=== PATIENT | female | born 1965 | race Caucasian/White ===

== ENCOUNTER 2020-10-11 14:17 | Emergency (ER) | payer OTHER, SELFPAY ==
--- NOTE | ~2020-10-11 | CT_ITS ---
EXAMINATION: CT ABDOMEN AND PELVIS WITH CONTRAST CLINICAL INFORMATION: Left lower quadrant pain for 3 days. COMPARISON: CT abdomen and pelvis with contrast 09/06/2012. TECHNIQUE: Multidetector volumetric images were obtained from the superior aspect of the liver through the pubic symphysis following administration 85 mL of Omnipaque 350 intravenous contrast. Sagittal and coronal reformatted images were obtained on the technologist's workstation. Oral contrast: No This CT examination was performed using dose optimization techniques as appropriate, variously including the following: *Automated exposure control *Adjustment of mA and/or kV according to patient size (this includes techniques or standardized protocols for targeted exams where dose is matched to indication/reason for exam; i.e. extremities or head) *Use of iterative reconstruction technique DLP: 565 mGy-cm FINDINGS: LUNG BASES: The visualized lung bases are unremarkable. LIVER, GALLBLADDER, AND BILIARY TREE: The liver is borderline enlarged measuring 19 cm in length similar to prior exam. There is mild diffuse hepatic steatosis. There is some accentuated steatosis adjacent to the gallbladder fossa. No focal hepatic parenchymal lesion or intrahepatic ductal dilatation. There has been prior cholecystectomy. The common duct is unremarkable. PANCREAS: Unremarkable. SPLEEN: Unremarkable. ADRENAL GLANDS: Unremarkable. KIDNEYS AND URETERS: The kidneys are normal in size, shape, and attenuation. No hydronephrosis, hydroureter, or calculi seen. No perinephric stranding. BLADDER: Unremarkable. GASTROINTESTINAL TRACT: There are focal inflammatory changes in region of distal descending and proximal sigmoid colon in an area of diverticula. There is subtle induration in the mesentery adjacent to the diverticulum consistent with diverticulitis. This is in similar area to prior diverticulitis in 2013. There is no proximal obstruction, pneumatosis, or free air, or fluid collection. No ascites. The appendix is normal. There are lipomatous changes in region of ileocecal valve as incidental finding. There is a small sliding hiatal hernia approximately 3 cm. ABDOMINAL WALL: Small fat-containing umbilical hernia approximately 2 cm. LYMPH NODES: No lymphadenopathy. VASCULAR: Unremarkable. PELVIC VISCERA: Unremarkable. OSSEOUS STRUCTURES: Unremarkable. CT/CT abdomen pelvis w con IMPRESSION: Diverticulitis left lower quadrant at junction distal descending and proximal sigmoid colon. No proximal obstruction, ascites, or fluid collection.
[2020-10-11 14:36] VITALS: BP 134/76; PULSE 88; RESP 16; O2SAT 94; BMI 29.4
[2020-10-11 15:41] LABS: Glucose Urine UA NEG (NEG); Leukocyte Esterase Urine 1+ (NEG); Nitrite Urine NEG (NEG); Specific Gravity - Urine 1.015 (1.005-1.025); Urine Blood NEG (NEG); Urine Ketones NEG (NEG); Urine Protein NEG (NEG-TRACE)
[2020-10-11 15:44] LABS: Appearance Urine HAZY; Color Urine YELLOW
--- NOTE | 2020-10-11 15:44 | ED.ABDPAIN ---
HPI - Abdominal Pain General Chief Complaint: Abdominal Pain Stated Complaint: abd pain Time Seen by Provider: 10/11/20 15:16 Source: patient and family Mode of arrival: ambulatory Limitations: language barrier ( Estonian-speaking) History of Present Illness HPI narrative: 54-year-old female with a past medical history of GERD, pancreatitis, diabetes, hypertension, asthma, anxiety and depression who has had a cholecystectomy and a tubal ligation presenting to the ED with her daughter at bedside with complaints of left lower quadrant abdominal pain with associated dysuria, increased urinary urgency /frequency for the past 3 days worse today. Reports that she was treated for UTI in August. She reports associated chills. Denies any fevers, nausea /vomiting, chest pain, shortness of breath, back pain, abnormal vaginal discharge, diarrhea or constipation, black or bloody stools, recent travel or sick contacts or any other symptoms complaints or concerns at this time. MD elicited complaint: abdominal pain Pertinent past history: past UTI Onset (ago): day(s) ( Three days) Pain Consistency: constant Location: LLQ Severity: moderate Quality: aching Radiation: none Migration to: no migration Exacerbating factors: other ( urination) Relieving factors: nothing Associated symptoms: other ( dysuria/ increased urinary urgency/frequent and chills) Related Data Previous Rx's Medication Instructions Recorded acetaminophen [Tylenol Extra 1,000 mg PO QID PRN #14 tab 10/11/20 Strength] amoxicillin-pot clavulanate 1 tab PO BID 10 Days #20 tab 10/11/20 [Augmentin] ibuprofen 800 mg PO Q8H PRN #14 tab 10/11/20 ondansetron HCl [Zofran] 4 mg PO Q8H PRN #14 tab 10/11/20 oxycodone 5 mg PO BID PRN #10 tab 10/11/20 Allergies Allergy/AdvReac Type Severity Reaction Status Date / Time No Known Allergies Allergy Verified 10/11/20 14:40 Review of Systems Review of Systems Constitutional : No Weight loss, No Fever, No Chills, No Night Sweats, No Fatigue, NoMalaise ENT/Mouth: No ear pain, No sore throat, No Difficulty swallowing Cardiovascular : No Chest Pain, No SOB, No Dyspnea on Exertion, No Orthopnea, NoEdema, No Palpitations Respiratory : No Cough, No Sputum, No Wheezing, No Dyspnea Gastrointestinal : positive left lower quadrant abdominal pain, No Nausea, No Vomiting, No Diarrhea, No blood streaked emesis, No coffee-ground emesis, No gross hematemesis, No blood streak stool, No gross hematochezia, No Melena Genitourinary : positive dysuria / increased urinary urgency /frequency, No irregular bleeding, No Hematuria,No Urinary Incontinence, No Flank Pain Musculoskeletal : No joint pain, No Myalgias, No Joint Swelling Skin : No Skin Lesions, No rash Neuro : No Weakness, No Numbness, No Paresthesias, No Loss of Consciousness, NoDizziness, No Headache Psych : No Social Issues, Heme/Lymph: No Bruising, No Bleeding,No Lymphadenopathy Endocrine : No Polyuria, No Polydipsia, No Temperature Intolerance Yes all other systems are reviewed and are negative Physical Exam Vital Signs: Vital Signs: Last Vital Signs Pulse 82 10/11/20 16:28 Resp 16 10/11/20 14:36 BP 130/71 10/11/20 16:28 Pulse Ox 96 10/11/20 16:28 Body Mass Index 29.4 vital signs have been reviewed as normal and appeared to be correct. Blood pressure normal. Heart rate normal. Respiration rate normal. Temperature normal. Oxygen saturation normal. Appearance: Alert. Oriented X3. No acute distress. Head: Normal external exam. Normocephalic. Eyes: PERRLA. EOMI. Conjunctiva and sclera normal. Eyelids normal. ENT: Pharynx normal. Uvula midline. Moist mucous membranes. Neck: Normal inspection. Neck supple. FROM. No adenopathy. No meningeal signs. CVS: Normal heart rate and rhythm. Heart sound normal. No murmurs noted. Pulses normal throughout. Respiratory: No respiratory distress. Painless inspiration. Breath sounds normal. No wheezes/rales/rhonchi noted. Chest nontender. No accessory muscle usage noted or decreased air movement noted. Abdomen: Soft and tenderness to palpation to left lower quadrant with guarding. Nondistended. No rigidity. Bowel sounds normal in all 4 quadrants. No distention noted. No organomegaly noted. No visible injury noted. No rebound tenderness. Negative Rovsing sign. Negative obturator's sign. Negative psoas sign. Negative Rodriguez sign. Back: No CVA tenderness. Full range of motion noted. Skin: Skin warm and dry. Normal skin color. Normal skin turgor. No rashes/lesions/lacerations noted. Extremities: Extremities exhibit normal range of motion. Extremities nontender. Neuro: Oriented X 3. No motor deficit. No sensory deficit. Reflexes normal. Normal steady gait. Course Course Course Narrative: 15:40pm - 54-year-old female with a past medical history of GERD, pancreatitis, diabetes, hypertension, asthma, anxiety and depression who has had a cholecystectomy and a tubal ligation presenting to the ED with her daughter at bedside with complaints of left lower quadrant abdominal pain with associated dysuria, increased urinary urgency /frequency for the past 3 days worse today. Reports that she was treated for UTI in August. She reports associated chills. Plan: Labs, UA, UHCG, CT scan abdomen pelvis with IV contrast. Provide a L of IV fluids, 4 mg of Zofran and 15 mg of Toradol then re-evaluate. Reevaluation(s) Reevaluation #1: - labs returned all within normal limits. UA within normal limits no evidence of UTI. CT scan abdomen pelvis revealed diverticulitis left lower quadrant as junctional distal descending and proximal sigmoid colon. No proximal obstruction ascites or fluid collection. Patient is tolerating p.o. fluids / solids. I offered admission although patient reports she would rather go home. Therefore will DC home with antibiotics and symptomatic treatment along with instructions follow-up with primary care provider in GI and to return if any new or worsening symptoms. Patient and daughter at bedside understand agree this plan. Time: 18:00 MDM - Abdominal Pain Medical Records Attestation: I reviewed the patient's medical records. Lab Data Attestation: I reviewed the patient's lab results. Result diagrams: 10/11/20 16:10 10/11/20 15:33 Labs: Lab Results 10/11/20 10/11/20 10/11/20 Range/Units 15:33 15:33 16:10 WBC 11.8 H (4.8-10.8) X10*3/uL RBC 4.51 (4.20-5.50) X10*6/uL Hgb 14.0 (12.0-16.0) g/dl Hct 41.2 (37-47) % MCV 91.4 (80-98) fL MCH 31.0 (27.0-33.0) pg MCHC 34.0 (31.0-35.0) g/dl RDW 12.5 (11.0-16.0) % Plt Count 227 (160-400) X10*3/uL MPV 11.5 (9.4-12.3) fL Immature Gran % (Auto) 0.6 H (0.0-0.4) % Neut % (Auto) 68.1 (45-73) % Lymph % (Auto) 24.2 (20-40) % [place] % (Auto) 4.8 (2-11) % Eos % (Auto) 2.0 (0-4) % Baso % (Auto) 0.3 (0-2) % Lymph # (Auto) 2.9 (1.2-4.9) X10*3/uL [place] # (Auto) 0.6 (0.1-1.2) X10*3/uL Eos # (Auto) 0.2 (0.0-0.4) X10*3/uL Baso # (Auto) 0.0 (0.0-0.2) X10*3/uL Abs Immat Gran (auto) 0.07 H (0.00-0.03) X10*3/uL Absolute Neuts (auto) 8.0 (2.0-8.3) X10*3/uL Absolute Nucleated RBC 0.000 (0.0-0.012) X10*3/uL Nucleated RBC % (auto) 0.0 (0.0-0.2) /100WBC Sodium 139 (135-145) mmol/L Potassium 3.6 (3.3-5.1) mmol/L Chloride 101 (96-108) mmol/L Carbon Dioxide 25 (22-29) mmol/L Anion Gap 17 (12-20) BUN 9 (9-16) mg/dL Creatinine 0.69 (0.5-1.4) mg/dL Estim Creat Clear Calc 88.1 Estimated GFR > 60 Random Glucose 144 H (60-115) mg/dL Calcium 9.7 (8.4-10.2) mg/dL Magnesium 1.8 (1.6-2.6) mg/dL Total Bilirubin 0.8 (0.0-1.0) mg/dL AST 25 (5-31) U/L ALT 24 (0-31) U/L Alkaline Phosphatase 88 (39-117) U/L Total Protein 8.2 H (6.5-8.0) g/dL Albumin 4.4 (3.5-5.0) g/dL Lipase 16 (8-78) U/L Urine Color YELLOW Urine Appearance HAZY Urine pH 6.0 (5.0-8.0) Ur Specific [place] 1.015 (1.005-1.025) Urine Protein NEG (NEG-TRACE) MG/DL Urine Glucose (UA) NEG (NEG) MG/DL Urine Ketones NEG (NEG) MG/DL Urine Blood NEG (NEG) Urine Nitrite NEG (NEG) Ur Leukocyte Esterase 1+ H (NEG) Urine RBC 0 (0) /HPF Urine WBC 5-9 H (0-4) /HPF Ur Squamous Epith Cells 4+ /LPF Urine Bacteria 1+ /LPF Imaging Data CT scan abdomen pelvis IV contrast: Attestation: I personally reviewed and interpreted this imaging study as follows: Radiologist's impression: FINDINGS: LUNG BASES: The visualized lung bases are unremarkable. LIVER, GALLBLADDER, AND BILIARY TREE: The liver is borderline enlarged measuring 19 cm in length similar to prior exam. There is mild diffuse hepatic steatosis. There is some accentuated steatosis adjacent to the gallbladder fossa. No focal hepatic parenchymal lesion or intrahepatic ductal dilatation. There has been prior cholecystectomy. The common duct is unremarkable. PANCREAS: Unremarkable. SPLEEN: Unremarkable. ADRENAL GLANDS: Unremarkable. KIDNEYS AND URETERS: The kidneys are normal in size, shape, and attenuation. No hydronephrosis, hydroureter, or calculi seen. No perinephric stranding. BLADDER: Unremarkable. GASTROINTESTINAL TRACT: There are focal inflammatory changes in region of distal descending and proximal sigmoid colon in an area of diverticula. There is subtle induration in the mesentery adjacent to the diverticulum consistent with diverticulitis. This is in similar area to prior diverticulitis in 2013. There is no proximal obstruction, pneumatosis, or free air, or fluid collection. No ascites. The appendix is normal. There are lipomatous changes in region of ileocecal valve as incidental finding. There is a small sliding hiatal hernia approximately 3 cm. ABDOMINAL WALL: Small fat-containing umbilical hernia approximately 2 cm. LYMPH NODES: No lymphadenopathy. VASCULAR: Unremarkable. PELVIC VISCERA: Unremarkable. OSSEOUS STRUCTURES: Unremarkable. CT/CT abdomen pelvis w con IMPRESSION: Diverticulitis left lower quadrant at junction distal descending and proximal sigmoid colon. No proximal obstruction, ascites, or fluid collection. Discharge Plan Discharge Clinical Impression: Diverticulitis Patient Disposition: Home, Self-Care Instructions: Diverticulitis (ED), Diverticulitis Diet (ED) Prescriptions: New ibuprofen 800 mg tablet 800 mg PO Q8H PRN (Reason: pain) Qty: 14 RF: 0 ondansetron HCl [Zofran] 4 mg tablet 4 mg PO Q8H PRN (Reason: nausea and vomiting) Qty: 14 RF: 0 acetaminophen [Tylenol Extra Strength] 500 mg tablet 1,000 mg PO QID PRN (Reason: fever or pain) Qty: 14 RF: 0 amoxicillin-pot clavulanate [Augmentin] 875-125 mg tablet 1 tab PO BID 10 Days Qty: 20 RF: 0 oxycodone 5 mg tablet 5 mg PO BID PRN (Reason: pain) Qty: 10 RF: 0 Referrals: Cheryl Murry NP [Primary Care Provider] - 2 days Hugo Florentino MD [Physician] - 2 days Print Language: [employer] Past Medical History Attestation statement: The following information was validated with the patient. Medical History Anxiety Asthma Diabetes Hypertension Surgical History H/O tubal ligation History of cholecystectomy Social History Social History Advance Directives: Yes Advance Directives Information Provided: Yes Advance Directives on File: No Patient : No
[2020-10-11 15:50] LABS: Bacteria Urine 1+ /LPF; RBC Urine 0 /HPF (0); Squamous Epithelial Cell Urine 4+ /LPF
[2020-10-11 16:11] LABS: Alanine Aminotransferase 24 U/L (0-31); Albumin Level 4.4 g/dL (3.5-5.0); Alkaline Phosphatase 88 U/L (39-117); Anion Gap 17 (12-20); Aspartate Amino Transferase 25 U/L (5-31); Bilirubin Total 0.8 mg/dL (0.0-1.0); Blood Urea Nitrogen 9 mg/dL (9-16); Calcium 9.7 mg/dL (8.4-10.2); Carbon Dioxide 25 mmol/L (22-29); Chloride 101 mmol/L (96-108); Creatinine Clr Calc Pharmacy 88.1; Estimated Glomerular Filt Rate > 60; Glucose Random 144 mg/dL (60-115); Lipase 16 U/L (8-78); Magnesium 1.8 mg/dL (1.6-2.6); Potassium 3.6 mmol/L (3.3-5.1); Sodium 139 mmol/L (135-145); Total Protein 8.2 g/dL (6.5-8.0)
[2020-10-11] MEDS: Ketorolac Tromethamine 15 MG/ML VIAL IVPUSH (16:18)
[2020-10-11] MEDS: ondansetron HCL 4 MG/2 ML VIAL IVPUSH (16:18)
[2020-10-11] MEDS: 0.9 % Sodium Chloride 1,000 ML 999 ML IVCONT (16:18)
[2020-10-11 16:28] VITALS: BP 130/71; PULSE 82; O2SAT 96
[2020-10-11 16:31] LABS: Basophils Percent Auto 0.3 % (0-2); Eosinophils Absolute Auto 0.2 X10*3/uL (0.0-0.4); Hematocrit 41.2 % (37-47); Imm Gran Abs Auto 0.07 X10*3/uL (0.00-0.03); Imm Gran Pct Auto 0.6 % (0.0-0.4); Lymphocytes Absolute Auto 2.9 X10*3/uL (1.2-4.9); Lymphocytes Percent Auto 24.2 % (20-40); Mean Corpuscular Volume 91.4 fL (80-98); Mean Platelet Volume 11.5 fL (9.4-12.3); Monocytes Absolute Auto 0.6 X10*3/uL (0.1-1.2); Monocytes Percent Auto 4.8 % (2-11); Neutrophils Percent Auto 68.1 % (45-73); Platelet Count 227 X10*3/uL (160-400); Red Blood Count 4.51 X10*6/uL (4.20-5.50); Red Cell Distribution Width 12.5 % (11.0-16.0); White Blood Count 11.8 X10*3/uL (4.8-10.8)
[2020-10-11] MEDS: iohexoL 350 MG/ML 100 ML INFUS..BTL IV (16:45)
== END 2020-10-11 18:38 | disposition home or self-care (01) ==
PROVIDERS: Physician Assistant Medical; Emergency Provider Emergency Medicine; PCP Nurse Practitioner Family
DX: K57.92 Diverticulitis of intestine, part unspecified, without perforation or abscess without bleeding (principal); E11.9 Type 2 diabetes mellitus without complications; I10 Essential (primary) hypertension; J45.909 Unspecified asthma, uncomplicated; Z90.49 Acquired absence of other specified parts of digestive tract; Z98.51 Tubal ligation status
CPT/HCPCS: 36415; 74177; 80053; 81001; 81025; 83690; 83735; 85025; 96361; 96374; 96375; 99284; J1885; J2405; Q9967

== ENCOUNTER 2020-11-25 09:10 | Emergency (ER) | payer OTHER, SELFPAY ==
--- NOTE | ~2020-11-25 | XR_ITS ---
EXAMINATION: XR THORACIC SPINE CLINICAL INFORMATION: Upper back pain COMPARISON: None TECHNIQUE: 3 views of the thoracic spine were obtained. FINDINGS: There is normal thoracic kyphosis. The vertebral heights, alignment and disc heights are normal. No visible acute fracture, dislocation or subluxation seen. XR/XR thoracic spine 3V IMPRESSION: Unremarkable thoracic spine exam.
--- NOTE | ~2020-11-25 | XR_ITS ---
EXAMINATION: XR SHOULDER, LEFT CLINICAL INFORMATION: Left shoulder pain COMPARISON: None TECHNIQUE: The left shoulder is imaged in 3 views. FINDINGS: There is no fracture or dislocation or destructive process. The glenohumeral joint appears normal. There are no rotator cuff calcifications. The acromioclavicular alignment is normal. There is small inferior spurring from the distal acromium. The left lung apex is well expanded and shows no pneumothorax or pleural reaction. XR/XR shoulder LT min 2V IMPRESSION: 1. No fracture, dislocation, destructive process. 2. Small inferior spur at distal acromium. 3. No visible rotator cuff calcifications.
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
[2020-11-25 11:01] VITALS: BP 135/88; PULSE 81; RESP 18; TEMP 37.1; O2SAT 97; BMI 25.7
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
[2020-11-25 13:34] VITALS: BP 135/82; PULSE 68; RESP 16; TEMP 36.6; O2SAT 99
== END 2020-11-25 16:09 | disposition home or self-care (01) ==
PROVIDERS: Emergency Provider Emergency Medicine; PCP Nurse Practitioner Family
DX: S39.012A Strain of muscle, fascia and tendon of lower back, initial encounter (principal); R07.89 Other chest pain; M54.2 Cervicalgia; M54.6 Pain in thoracic spine; V43.52XA Car driver injured in collision with other type car in traffic accident, initial encounter; Y93.9 Activity, unspecified; Y92.410 Unspecified street and highway as the place of occurrence of the external cause; Y99.9 Unspecified external cause status; Z79.899 Other long term (current) drug therapy
CPT/HCPCS: 71046; 72072; 72100; 72125; 73030; 99284

== ENCOUNTER → 2021-01-21 11:31 | Outpatient (BNVA) | payer OTHER, SELFPAY | PROVIDERS: PCP Nurse Practitioner Family; Visit Provider Nurse Practitioner | DX: Z12.11 Encounter for screening for malignant neoplasm of colon (principal); K57.92 Diverticulitis of intestine, part unspecified, without perforation or abscess without bleeding; K90.89 Other intestinal malabsorption; K21.9 Gastro-esophageal reflux disease without esophagitis | CPT/HCPCS: Q3014 ==

== ENCOUNTER 2021-05-01 22:00 | Emergency (ER) | payer OTHER, SELFPAY ==
--- NOTE | ~2021-05-01 | XR_ITS ---
EXAMINATION: XR CHEST CLINICAL INFORMATION: Dyspnea. COMPARISON: Chest x-ray 11/25/2020 TECHNIQUE: 2 views of the chest were obtained. FINDINGS: No significant abnormality is noted involving the heart, lungs, mediastinum, bony thorax or soft tissues. XR/XR chest 2V IMPRESSION: Unremarkable examination.
[2021-05-01 22:05] VITALS: BP 171/95; PULSE 83; RESP 24; TEMP 36.6; O2SAT 97; BMI 29.2
[2021-05-01 23:15] VITALS: BP 155/83; PULSE 84; RESP 18; TEMP 36.7; O2SAT 96
--- NOTE | 2021-05-01 23:15 | ED_ITS ---
HPI - SOB/Dyspnea General Chief Complaint: Dyspnea Stated Complaint: Difficulty breathing Time Seen by Provider: 05/01/21 23:09 Source: patient Mode of arrival: ambulatory Limitations: no limitations History of Present Illness HPI Narrative: patient's history of asthma no history of smoking being wheezing for last few days getting worse using inhaler at home also nebulizing treatment as needed without much relief has dry cough mostly no fever no chills already been vaccinated against COVID Related Data Previous Rx's Medication Instructions Recorded acetaminophen 500 mg tablet 1,000 mg PO QID PRN #14 tab 10/11/20 (Tylenol Extra Strength) amoxicillin 875 mg-potassium 1 tab PO BID 10 Days #20 tab 10/11/20 clavulanate 125 mg tablet (Augmentin) ibuprofen 800 mg tablet 800 mg PO Q8H PRN #14 tab 10/11/20 ondansetron HCl 4 mg tablet 4 mg PO Q8H PRN #14 tab 10/11/20 (Zofran) oxycodone 5 mg tablet 5 mg PO BID PRN #10 tab 10/11/20 cyclobenzaprine 10 mg tablet 10 mg PO Q8H #10 tab 11/25/20 ibuprofen 800 mg tablet 800 mg PO Q8H PRN #14 tab 11/25/20 bisacodyl 5 mg tablet,delayed 10 mg PO BEDTIME 2 Days #4 tab 01/21/21 release (Dulcolax (bisacodyl)) famotidine 40 mg tablet (Pepcid) 40 mg PO BEDTIME 30 Days #30 tab 01/21/21 peg 3350-electrolytes 236 240 ml PO Q10M 1 Days #4000 ml 01/21/21 gram-22.74 gram-6.74 gram-5.86 gram solution (Golytely) cholestyramine-aspartame 4 gram 4 g PO DAILY #210 g 04/30/21 oral powder (Cholestyramine Light) prednisone 20 mg tablet 40 mg PO DAILY #10 tab 05/02/21 Allergies Allergy/AdvReac Type Severity Reaction Status Date / Time No Known Allergies Allergy Verified 05/01/21 22:05 Review of Systems Verdana 4l Review of Systems: Yes all other systems are reviewed and Verdana 4d are negative PMFSH Past Medical History Medical History Anxiety Asthma Diabetes Gallstone pancreatitis Ganglion cyst Hypertension Surgical History H/O tubal ligation History of bilateral carpal tunnel release History of cholecystectomy Social History Social History Patient Tobacco Use Status: Never used Tobacco Advance Directives: No Advance Directives Information Provided: No Physical Exam Verdana 4l Vital Signs: Verdana 4d Verdana 4d Vital Signs: Verdana 4d Verdana 4Bd Last Vital Signs Verdana 4d District Medical Examiner New 4d District Medical Examiner New 4d Temp 98.1 F 05/01/21 23:15 District Medical Examiner New 4d Pulse 85 05/01/21 23:30 District Medical Examiner New 4d Resp 18 05/01/21 23:30 BP 155/83 H 05/01/21 23:15 Pulse Ox 96 05/01/21 23:15 BMI result Body Mass Index 29.2 Appearance: Alert. Oriented X3. No acute distress. ENT: Pharynx normal. Oral Mucosa moist Neck: Normal inspection. Neck supple. CVS: Normal heart rate and rhythm. Pulses normal. Respiratory: prolonged expiration with bilateral wheezing Equal air entry bilateral, no rales Abdomen: Soft and nontender. Bowel sounds are present, no mass palpable, no CVA tenderness Skin: Skin warm and dry. Normal skin color. Normal skin turgor. Extremities: No lower extremity edema. No calf tenderness Neuro: Oriented X 3. MDM - SOB/Dyspnea MDM Narrative Medical decision making narrative: patient with asthma, stable labs and x-ray feeling better after nebulizing treatment and solumedrol will discharge patient home on prednisone advice to continues to use inhaler Lab Data Attestation: I reviewed the patient's lab results. Result diagrams: 05/01/21 23:22 05/01/21 23:22 Labs: Lab Results 05/01/21 05/01/21 05/01/21 Range/Units 23:22 23:22 23:22 WBC 9.8 (4.8-10.8) X10*3/uL RBC 4.48 (4.20-5.50) X10*6/uL Hgb 13.9 (12.0-16.0) g/dl Hct 41.0 (37.0-47.0) % MCV 91.5 (80.0-98.0) fL MCH 31.0 (27.0-33.0) pg MCHC 33.9 (31.0-35.0) g/dl RDW 12.5 (11.0-16.0) % Plt Count 213 (160-400) X10*3/uL MPV 11.4 (9.4-12.3) fL Immature Gran % (Auto) 1.6 H (0.0-0.4) % Neut % (Auto) 50.2 (45-73) % Lymph % (Auto) 36.1 (20-40) % Hudson % (Auto) 4.2 (2-11) % Eos % (Auto) 7.3 H (0-4) % Baso % (Auto) 0.6 (0-2) % Lymph # (Auto) 3.5 (1.2-4.9) X10*3/uL Hudson # (Auto) 0.4 (0.1-1.2) X10*3/uL Eos # (Auto) 0.7 H (0.0-0.4) X10*3/uL Baso # (Auto) 0.1 (0.0-0.2) X10*3/uL Abs Immat Gran (auto) 0.16 H (0.00-0.03) X10*3/uL Absolute Neuts (auto) 4.9 (2.0-8.3) x10*3/uL Absolute Nucleated RBC 0.000 (0.0-0.012) X10*3/uL Nucleated RBC % (auto) 0.0 (0.0-0.2) /100WBC Sodium 136 (135-145) mmol/L Potassium 4.5 D (3.3-5.1) mmol/L Chloride 104 (96-108) mmol/L Carbon Dioxide 24 (22-29) mmol/L Anion Gap 13 (12-20) BUN 15 (9-16) mg/dL Creatinine 0.64 (0.5-1.4) mg/dL Estim Creat Clear Calc 86.4 Estimated GFR > 60 Random Glucose 133 H (60-115) mg/dL Calcium 8.9 D (8.4-10.2) mg/dL COVID-19 (GABY) Negative (Negative) COVID-19 Clin Com See Note Discharge Plan Discharge Clinical Impression: Asthma Patient Disposition: Home, Self-Care Instructions: Asthma (ED) Additional Instructions: continue to take inhaler/nebulizing treatment every 4-6 hours as needed prednisone as advised for the PCP if not better Prescriptions: New prednisone 20 mg tablet 40 mg PO DAILY Qty: 10 0RF No Action Cholestyramine Light 4 gram powder 4 g PO DAILY Qty: 210 0RF Rx Instructions: administer w/meal; avoid other meds within 1hr before or 4-6hr after dose ibuprofen 800 mg tablet 800 mg PO Q8H PRN (Reason: pain) Qty: 14 0RF ondansetron HCl [Zofran] 4 mg tablet 4 mg PO Q8H PRN (Reason: nausea and vomiting) Qty: 14 0RF acetaminophen [Tylenol Extra Strength] 500 mg tablet 1,000 mg PO QID PRN (Reason: fever or pain) Qty: 14 0RF amoxicillin-pot clavulanate [Augmentin] 875-125 mg tablet 1 tab PO BID 10 Days Qty: 20 0RF oxycodone 5 mg tablet 5 mg PO BID PRN (Reason: pain) Qty: 10 0RF cyclobenzaprine 10 mg tablet 10 mg PO Q8H Qty: 10 0RF ibuprofen 800 mg tablet 800 mg PO Q8H PRN (Reason: pain) Qty: 14 0RF famotidine [Pepcid] 40 mg tablet 40 mg PO BEDTIME 30 Days Qty: 30 3RF bisacodyl [Dulcolax (bisacodyl)] 5 mg tablet,delayed release (DR/EC) 10 mg PO BEDTIME 2 Days Qty: 4 0RF peg 3350-electrolytes [Golytely] 236-22.74-6.74 -5.86 gram recon soln 240 ml PO Q10M 1 Days Qty: 4000 0RF Rx Instructions: until fecal effluent is clear; do not exceed a total volume of 2,000 mL
[2021-05-01] MEDS: Magnesium Sulfate/H2O 2 GM/50 ML PIGGYBACK IV (23:26)
[2021-05-01] MEDS: methylPREDNISolone Sod Succ 125 MG/2 ML VIAL IVPUSH (23:26)
[2021-05-01 23:27] LABS: MANUAL DIFF FLAG NO
[2021-05-01] MEDS: Albuterol Sulfate (0.083%) 2.5 MG/3 ML VIAL.NEB 5 MG INHALE (23:29)
[2021-05-01] MEDS: Albuterol/Iprat 2.5/0.5MG 3 ML AMPUL.NEB INHALE (23:29)
[2021-05-01 23:30] VITALS: PULSE 85; RESP 18; O2SAT 97
[2021-05-01 23:31] LABS: Basophils Absolute Auto 0.1 X10*3/uL (0.0-0.2); Basophils Percent Auto 0.6 % (0-2); Eosinophils Absolute Auto 0.7 X10*3/uL (0.0-0.4); Eosinophils Percent Auto 7.3 % (0-4); Hemoglobin 13.9 g/dl (12.0-16.0); Imm Gran Abs Auto 0.16 X10*3/uL (0.00-0.03); Imm Gran Pct Auto 1.6 % (0.0-0.4); Lymphocytes Absolute Auto 3.5 X10*3/uL (1.2-4.9); Lymphocytes Percent Auto 36.1 % (20-40); Mean Corpuscular HGB Conc 33.9 g/dl (31.0-35.0); Mean Corpuscular Volume 91.5 fL (80.0-98.0); Mean Platelet Volume 11.4 fL (9.4-12.3); Monocytes Absolute Auto 0.4 X10*3/uL (0.1-1.2); Monocytes Percent Auto 4.2 % (2-11); Neutrophils Absolute Auto 4.9 x10*3/uL (2.0-8.3); Neutrophils Percent Auto 50.2 % (45-73); Platelet Count 213 X10*3/uL (160-400); Red Blood Count 4.48 X10*6/uL (4.20-5.50); Red Cell Distribution Width 12.5 % (11.0-16.0); White Blood Count 9.8 X10*3/uL (4.8-10.8)
[2021-05-01 23:50] LABS: Anion Gap 13 (12-20); Blood Urea Nitrogen 15 mg/dL (9-16); Calcium 8.9 mg/dL (8.4-10.2); Carbon Dioxide 24 mmol/L (22-29); Chloride 104 mmol/L (96-108); Creatinine Clr Calc Pharmacy 86.4; Estimated Glomerular Filt Rate > 60; Glucose Random 133 mg/dL (60-115); Potassium 4.5 mmol/L (3.3-5.1); Sodium 136 mmol/L (135-145)
[2021-05-01 23:54] LABS: COVID-19 Test Negative (Negative)
[2021-05-02] MEDS: Albuterol Sulfate (0.083%) 2.5 MG/3 ML VIAL.NEB 5 MG INHALE (01:22)
[2021-05-02 01:23] VITALS: PULSE 98; RESP 18; O2SAT 95
== END 2021-05-02 02:01 | disposition home or self-care (01) ==
PROVIDERS: Emergency Provider Internal Medicine; PCP Nurse Practitioner Family
DX: J45.909 Unspecified asthma, uncomplicated (principal); Z20.822 Contact with and (suspected) exposure to COVID-19; E11.9 Type 2 diabetes mellitus without complications; I10 Essential (primary) hypertension
CPT/HCPCS: 36415; 71046; 80048; 85025; 87635; 94640; 94644; 96365; 96366; 96375; 99284; 99285; J2930; J3475

== ENCOUNTER 2021-06-10 15:40 | Emergency (ER) | payer OTHER, SELFPAY ==
[2021-06-10 16:25] VITALS: BP 103/75; BP 148/92; PULSE 72; PULSE 86; RESP 16; TEMP 36.8; O2SAT 98; BMI 27.1
--- NOTE | 2021-06-10 18:39 | ED.DENTAL ---
HPI - Dental/Oral General Chief complaint: Dental/Oral Stated complaint: dizzy Time Seen by Provider: 06/10/21 16:39 Source: patient and commercial baker helper Mode of arrival: ambulatory Limitations: language barrier History of Present Illness HPI Narrative: Patient is a 55 year old female presenting to the emergency department today with dental pain after a dental procedure. Patient states that earlier today, she had dental implants placed and ever since has had dental pain and some dizziness. Patient denies any lightheadedness, abdominal pain, nausea, vomiting, fever, chills, blurry vision, double vision, loss of vision, chest pain, difficulty breathing, shortness of breath, back pain, night sweats, pain with urination, increased urinary frequency, increased urinary urgency, blood in her urine or stool, syncope or a near syncopal episode, recent trauma or falls, bowel incontinence, bladder incontinence, bowel retention, bladder retention, or any other complaints at this time. MD Complaint: tooth pain Related Data Previous Rx's Medication Instructions Recorded acetaminophen 500 mg tablet 1,000 mg PO QID PRN #14 tab 10/11/20 (Tylenol Extra Strength) amoxicillin 875 mg-potassium 1 tab PO BID 10 Days #20 tab 10/11/20 clavulanate 125 mg tablet (Augmentin) ibuprofen 800 mg tablet 800 mg PO Q8H PRN #14 tab 10/11/20 ondansetron HCl 4 mg tablet 4 mg PO Q8H PRN #14 tab 10/11/20 (Zofran) oxycodone 5 mg tablet 5 mg PO BID PRN #10 tab 10/11/20 cyclobenzaprine 10 mg tablet 10 mg PO Q8H #10 tab 11/25/20 ibuprofen 800 mg tablet 800 mg PO Q8H PRN #14 tab 11/25/20 bisacodyl 5 mg tablet,delayed 10 mg PO BEDTIME 2 Days #4 tab 01/21/21 release (Dulcolax (bisacodyl)) famotidine 40 mg tablet (Pepcid) 40 mg PO BEDTIME 30 Days #30 tab 01/21/21 peg 3350-electrolytes 236 240 ml PO Q10M 1 Days #4000 ml 01/21/21 gram-22.74 gram-6.74 gram-5.86 gram solution (Golytely) cholestyramine-aspartame 4 gram 4 g PO DAILY #210 g 04/30/21 oral powder (Cholestyramine Light) prednisone 20 mg tablet 40 mg PO DAILY #10 tab 05/02/21 hydrocodone 5 mg-acetaminophen 325 1 tab PO Q4H PRN 3 Days #5 tab 06/10/21 mg tablet ondansetron 4 mg disintegrating 4 mg PO Q8H PRN 4 Days #10 tab 06/10/21 tablet Allergies Allergy/AdvReac Type Severity Reaction Status Date / Time No Known Allergies Allergy Verified 05/01/21 22:05 Review of Systems Constitutional: Constitutional: Reports no additional constitutional complaints, Denies chills, Denies fever(s) and Denies night sweats Eyes: Eyes: Reports no additional eye complaints, Denies blurry vision, Denies change in vision, Denies diplopia, Denies eye discharge, Denies loss of vision and Denies eye pain ENT: Reports dental pain and Denies dizziness Cardiovascular: Cardiovascular: Reports no additional cardiovascular complaints, Denies chest pain, Denies lightheadedness, Denies Loss of Consciousness and Denies dyspnea Respiratory: Respiratory: Reports no additional respiratory complaints and Denies dyspnea Gastrointestinal: Gastrointestinal: Reports no additional gastrointestinal complaints, Denies abdominal pain, Denies melena, Denies hematochezia, Denies change in bowel habits and Denies change in stool character Genitourinary: Genitourinary: Denies hematuria, Denies urinary frequency, Denies dysuria, Denies urinary incontinence, Denies urinary hesitancy and Denies urinary urgency Musculoskeletal: Musculoskeletal: Reports no additional musculoskeletal complaints, Denies numbness and Denies tingling Neurologic: Denies dizziness, Denies loss of vision, Denies numbness and Denies tingling Psychiatric: Psychiatric: Reports no additional psychiatric complaints Endocrine: Endocrine: Reports no additional endocrine complaints Hematologic/Lymphatic: Hematologic/Lymphatic: Reports no additional hematologic/lymphatic complaints Allergic/Immunologic: Allergic/Immunologic: Reports no additional allergic/immunologic complaints PMFSH Past Medical History Attestation statement: The following information was validated with the patient. Source: old records reviewed Medical History Anxiety Asthma Diabetes Gallstone pancreatitis Ganglion cyst Hypertension Surgical History H/O tubal ligation History of bilateral carpal tunnel release History of cholecystectomy Social History Social History Patient Tobacco Use Status: Never used Tobacco Advance Directives: No Advance Directives Information Provided: No Physical Exam Vital Signs: Vital Signs: Last Vital Signs Temp 98.2 F 06/10/21 16:25 Pulse 72 06/10/21 16:25 Resp 16 06/10/21 16:25 BP 103/75 06/10/21 16:25 Pulse Ox 98 06/10/21 16:25 BMI result Body Mass Index 27.1 Const: General: cooperative, no acute distress, alert and awake Nutritional Appearance: well nourished Orientation/consciousness: patient oriented x3 Limitations: no limitations HENMT: Head: Yes normal to inspection and Yes atraumatic Ears: hearing grossly normal bilaterally and external ears normal General nose exam: Normal external nose present, no nasal discharge noted and no epistaxis Face and sinus: Yes normal facial exam, No abrasion and No laceration Mouth: Normal oral and palatal mucosa present, no drooling and no muffled voice Eyes: General: appearance normal, both eyes and all related structures Periorbital: periorbital findings normal Eyelids: Yes eyelids normal Conjunctivae: conjunctivae normal Pupils: Equal, round and reactive pupils present EOM: EOMs intact bilaterally Neck: Neck: Yes normal visual inspection, Yes full ROM and Yes no lymphadenopathy Chest: Chest palpation & inspection: normal inspection of the chest Resp: Effort & Inspection: normal respiratory effort and able to speak in complete sentences Auscultation: clear to auscultation bilaterally Cardio: Rate: regular rate Rhythm: regular rhythm GI: Inspection: Yes normal to inspection Neuro: General: patient oriented x3 and moves all extremities Cranial nerves: Yes Equal, round and reactive pupils present Cognition (Neuro): normal cognition Motor exam (neuro): 5/5 motor strength present throughout Sensory Exam: Normal double simultaneous stimulation for sensation Coordination: [id number] test normal Extrem: General: Yes normal to inspection, Yes full ROM and Yes capillary refill normal Psych: Appearance: grossly normal Mental Status: mental status grossly normal Affect: normal affect Attitude: cooperative Thought process: Normal thought process present Thought content: Normal thought content present Insight: Good insight present (Psych) MDM - Dental/Oral MDM Narrative Medical decision making narrative: Patient is a 55 year old female presenting to the emergency department today with dental pain and dizziness. Patient's physical exam was unremarkable. I explained my physical exam findings to the patient and the patient's daughter. I answered all questions asked by the patient and the patient's daughter. I stressed the importance of the patient taking her medication as prescribed. I stressed the importance of the patient following up with her primary care provider and her dentist. I stressed the importance of the patient returning to the emergency department immediately if her symptoms were to worsen or if she were to develop any dizziness, shortness of breath, difficulty breathing, chest pain, blurry vision, loss of vision, nausea, vomiting, abdominal pain, fever, chills, back pain, or any other complaints. Patient and the patient's daughter verbalized agreement and understanding with this treatment plan and discharge. Differential Diagnosis Differential diagnosis: Likely toothache Medical Records Attestation: I reviewed the patient's medical records. Discharge Plan Discharge Clinical Impression: Pain, dental Patient Disposition: Home, Self-Care Instructions: Toothache (ED) Additional Instructions: Follow up with your primary care provider and your dentist. Return to the emergency department immediately if your symptoms worsen or if you develop any dizziness, shortness of breath, difficulty breathing, chest pain, blurry vision, loss of vision, nausea, vomiting, abdominal pain, fever, chills, back pain, or any other complaints. Prescriptions: New hydrocodone-acetaminophen 5-325 mg tablet 1 tab PO Q4H PRN (Reason: pain) 3 Days Qty: 5 0RF ondansetron 4 mg tablet,disintegrating 4 mg PO Q8H PRN (Reason: nausea and vomiting) 4 Days Qty: 10 0RF No Action Cholestyramine Light 4 gram powder 4 g PO DAILY Qty: 210 0RF Rx Instructions: administer w/meal; avoid other meds within 1hr before or 4-6hr after dose ibuprofen 800 mg tablet 800 mg PO Q8H PRN (Reason: pain) Qty: 14 0RF ondansetron HCl [Zofran] 4 mg tablet 4 mg PO Q8H PRN (Reason: nausea and vomiting) Qty: 14 0RF acetaminophen [Tylenol Extra Strength] 500 mg tablet 1,000 mg PO QID PRN (Reason: fever or pain) Qty: 14 0RF amoxicillin-pot clavulanate [Augmentin] 875-125 mg tablet 1 tab PO BID 10 Days Qty: 20 0RF oxycodone 5 mg tablet 5 mg PO BID PRN (Reason: pain) Qty: 10 0RF cyclobenzaprine 10 mg tablet 10 mg PO Q8H Qty: 10 0RF ibuprofen 800 mg tablet 800 mg PO Q8H PRN (Reason: pain) Qty: 14 0RF prednisone 20 mg tablet 40 mg PO DAILY Qty: 10 0RF famotidine [Pepcid] 40 mg tablet 40 mg PO BEDTIME 30 Days Qty: 30 3RF bisacodyl [Dulcolax (bisacodyl)] 5 mg tablet,delayed release (DR/EC) 10 mg PO BEDTIME 2 Days Qty: 4 0RF peg 3350-electrolytes [Golytely] 236-22.74-6.74 -5.86 gram recon soln 240 ml PO Q10M 1 Days Qty: 4000 0RF Rx Instructions: until fecal effluent is clear; do not exceed a total volume of 2,000 mL Interventions: ED Discharge Assessment Last Done: 06/10/21 19:33 Discharge Date/Time: 06/10/21 19:35 Print Language: Croatian
[2021-06-10] MEDS: Ondansetron ODT 4 MG TAB.RAPDIS TRANSLINGU (19:12)
[2021-06-10] MEDS: HYDROcodone Bit/Acetam 5/325 TABLET 1 TAB PO (19:12)
== END 2021-06-10 19:35 | disposition home or self-care (01) ==
PROVIDERS: Emergency Provider Emergency Medicine Emergency Medical Services
DX: K08.89 Other specified disorders of teeth and supporting structures (principal); Z98.818 Other dental procedure status
CPT/HCPCS: 99283

== ENCOUNTER 2022-07-04 15:09 | Emergency (ER) | payer OTHER, SELFPAY ==
[2022-07-04 15:17] VITALS: BP 142/78; PULSE 85; RESP 16; TEMP 36.6; O2SAT 97; BMI 29.0
--- NOTE | 2022-07-04 15:21 | ED.EXTPRO ---
HPI - Extremity Problem General Chief complaint: Extremity Injury, Upper <DONNELL Becerra - Last Filed: 07/04/22 15:24> Stated complaint: left arm pain <DONNELL Becerra Last Filed: 07/04/22 15:24> Time Seen by Provider: 07/04/22 16:34 <DONNELL Becerra Last Filed: 07/04/22 15:24> History of Present Illness HPI Narrative: Patient complains of left-sided neck pain radiating to the left fingers which began 1 week ago, she woke up from sleep and thought she had slept in the wrong position but over last several days pain is somewhat worse and now it is shooting into her fingertips, she has had no weakness in her hands no loss of sensation there is no chest pain no shortness of breath, no changes to bowel or bladder, onset was gradual over past week <DONNELL Nagy - Last Filed: 07/04/22 18:25> Related Data Home medications: Previous Rx's Medication Instructions Recorded acetaminophen 500 mg tablet 1,000 mg PO QID PRN fever or pain 10/11/20 (Tylenol Extra Strength) #14 tabs amoxicillin 875 mg-potassium 1 tab PO BID 10 days #20 tabs 10/11/20 clavulanate 125 mg tablet (Augmentin) ibuprofen 800 mg tablet 800 mg PO Q8H PRN pain #14 tabs 10/11/20 ondansetron HCl 4 mg tablet 4 mg PO Q8H PRN nausea and 10/11/20 (Zofran) vomiting #14 tabs oxycodone 5 mg tablet 5 mg PO BID PRN pain #10 tabs 10/11/20 cyclobenzaprine 10 mg tablet 10 mg PO Q8H Muscle spasm #10 tabs 11/25/20 ibuprofen 800 mg tablet 800 mg PO Q8H PRN pain #14 tabs 11/25/20 bisacodyl 5 mg tablet,delayed 10 mg PO BEDTIME 2 days #4 tabs 01/21/21 release (Dulcolax (bisacodyl)) famotidine 40 mg tablet (Pepcid) 40 mg PO BEDTIME 30 days #30 tabs 01/21/21 peg 3350-electrolytes 236 240 ml PO Q10M 1 day #4,000 mL 01/21/21 gram-22.74 gram-6.74 gram-5.86 gram solution (Golytely) cholestyramine-aspartame 4 gram 4 g PO DAILY #210 grams 04/30/21 oral powder (Cholestyramine Light) prednisone 20 mg tablet 40 mg PO DAILY #10 tabs 05/02/21 hydrocodone 5 mg-acetaminophen 325 1 tab PO Q4H PRN pain 3 days #5 06/10/21 mg tablet tabs ondansetron 4 mg disintegrating 4 mg PO Q8H PRN nausea and 06/10/21 tablet vomiting 4 days #10 tabs cyclobenzaprine 5 mg tablet 5 mg PO TID PRN muscle spasm #10 07/04/22 tabs ibuprofen 600 mg tablet 600 mg PO Q6H PRN pain #20 tabs 07/04/22 oxycodone 5 mg tablet 5 mg PO Q6H PRN pain #10 tabs 07/04/22 prednisone 20 mg tablet 60 mg PO DAILY 3 days #9 tabs 07/04/22 <DONNELL Becerra - Last Filed: 07/04/22 15:24> Allergies/Adverse reactions: Allergies Allergy/AdvReac Type Severity Reaction Status Date / Time No Known Allergies Allergy Verified 05/01/21 22:05 <DONNELL Becerra - Last Filed: 07/04/22 15:24> [facility] Past Medical History Source: nursing notes reviewed <DONNELL Nagy - Last Filed: 07/04/22 18:25> Medical History: Medical History Anxiety Asthma Diabetes Gallstone pancreatitis Ganglion cyst Hypertension <DONNELL Becerra - Last Filed: 07/04/22 15:24> Surgical History: Surgical History H/O tubal ligation History of bilateral carpal tunnel release History of cholecystectomy <DONNELL Becerra - Last Filed: 07/04/22 15:24> Social History Social History: Social History Patient Tobacco Use Status: Never used Tobacco Advance Directives: No Advance Directives Information Provided: No <DONNELL Becerra - Last Filed: 07/04/22 15:24> Physical Exam Vital Signs: Vital Signs: Last Vital Signs Temp 97.9 F 07/04/22 15:17 Pulse 85 07/04/22 15:17 Resp 16 07/04/22 15:17 BP 142/78 H 07/04/22 15:17 Pulse Ox 97 07/04/22 15:17 O2 Del Method Room Air 07/04/22 15:17 BMI result Body Mass Index 29.0 <DONNELL Becerra Last Filed: 07/04/22 15:24> Vital Signs: Last Vital Signs Temp 97.9 F 07/04/22 15:17 Pulse 85 07/04/22 15:17 Resp 16 07/04/22 15:17 BP 142/78 H 07/04/22 15:17 Pulse Ox 97 07/04/22 15:17 O2 Del Method Room Air 07/04/22 15:17 BMI result Body Mass Index 29.0 <DONNELL Nagy Last Filed: 07/04/22 18:25> General appearance is no acute distress Head is normocephalic atraumatic The neck had limited range of motion on lateral motion but full range of motion forward back, there was tenderness of the left lateral neck muscles and trapezius, skin color was normal there was no swelling or mass palpated, no focal tenderness over the bones, skin was normal The chest was clear to auscultation bilateral with no tenderness to the chest wall Heart no murmur Abdomen soft nontender Extremities full range of motion x4 Left hand and arm exam strength is 5/5 x4 and symmetrical with the other arm, validation intern strength is 5/5 x4 and symmetrical, sensation in all distal fingertips was normal Left shoulder exam there was some very mild tenderness to the shoulder, but most tenderness was in left lateral neck and trapezius, shoulder headache good range of motion with some discomfort on full extension, external rotation and abduction Other extremities normal Neuro gait and balance are normal, interaction comprehension and expression are normal, cranial nerves 2-12 intact as tested, motor is 5/5 x4, sensation intact and symmetrical <DONNELL Nagy - Last Filed: 07/04/22 18:25> Course Course Course Narrative: This is an RME: Additional HPI, ROS, PE not included below will be deferred to primary provider. 56 year old female hx of depreession, anxiety, diabetes, htn presents w/ L sided neck pain radiating into left arm w/ a/c numbness and tingling. No truama. Denies fevers chills PE- w/ 2+ radial pulses normal cap refill TTP to cervical paraspinous muscle on L and L trap area. Plan- toradol <DONNELL Becerra - Last Filed: 07/04/22 15:24> This is an RME: Additional HPI, ROS, PE not included below will be deferred to primary provider. 56 year old female hx of depreession, anxiety, diabetes, htn presents w/ L sided neck pain radiating into left arm w/ a/c numbness and tingling. No truama. Denies fevers chills PE- w/ 2+ radial pulses normal cap refill TTP to cervical paraspinous muscle on L and L trap area. Plan- toradol Patient with left-sided neck and trapezius pain radiating all the way to the fingers over a week without injury no weakness no chest pain no difficulty breathing no changes to bowel or bladder no loss of sensation is treated for cervical radiculopathy She is started on steroids pain medicine muscle relaxer and will follow with her doctor <DONNELL Nagy - Last Filed: 07/04/22 18:25> Medications Administered Discontinued Medications Generic Name Dose Route Start Last Admin Trade Name Freq PRN Reason Stop Dose Admin Ketorolac Tromethamine 30 mg 07/04/22 15:19 07/04/22 16:21 Ketorolac Tromethamine 15 Mg/Ml Vial IM 07/04/22 15:20 30 mg ONCE ONE Administration <DONNELL Becerra - Last Filed: 07/04/22 15:24> Medications Administered Discontinued Medications Generic Name Dose Route Start Last Admin Trade Name Freq PRN Reason Stop Dose Admin Ketorolac Tromethamine 30 mg 07/04/22 15:19 07/04/22 16:21 Ketorolac Tromethamine 15 Mg/Ml Vial IM 07/04/22 15:20 30 mg ONCE ONE Administration <DONNELL Nagy - Last Filed: 07/04/22 18:25> Discharge Plan Discharge Clinical Impression: Cervical radiculopathy <DONNELL Becerra - Last Filed: 07/04/22 15:24> Patient Disposition: Home, Self-Care <DONNELL Becerra - Last Filed: 07/04/22 15:24> Additional Instructions: You have a pinched nerve in her neck so we are treating with steroids for the pain shooting down her left arm You can use Motrin and Tylenol for mild pain if needed I wrote for oxycodone narcotic pain killer Flexeril as a muscle relaxer but a may cause drowsiness so use only at home Follow with your doctor for further evaluation next week if not better Return any time for any change or worse condition any concerns <DONNELL Becerra - Last Filed: 07/04/22 15:24> Prescriptions: New oxycodone 5 mg tablet 5 mg PO Q6H PRN (Reason: pain) Qty: 10 0RF Rx Instructions: Partial Fill upon patient request. prednisone 20 mg tablet 60 mg PO DAILY 3 Days Qty: 9 0RF cyclobenzaprine 5 mg tablet 5 mg PO TID PRN (Reason: muscle spasm) Qty: 10 0RF ibuprofen 600 mg tablet 600 mg PO Q6H PRN (Reason: pain) Qty: 20 0RF No Action Cholestyramine Light 4 gram powder 4 g PO DAILY Qty: 210 0RF Rx Instructions: administer w/meal; avoid other meds within 1hr before or 4-6hr after dose ibuprofen 800 mg tablet 800 mg PO Q8H PRN (Reason: pain) Qty: 14 0RF ondansetron HCl [Zofran] 4 mg tablet 4 mg PO Q8H PRN (Reason: nausea and vomiting) Qty: 14 0RF acetaminophen [Tylenol Extra Strength] 500 mg tablet 1,000 mg PO QID PRN (Reason: fever or pain) Qty: 14 0RF amoxicillin-pot clavulanate [Augmentin] 875-125 mg tablet 1 tab PO BID 10 Days Qty: 20 0RF oxycodone 5 mg tablet 5 mg PO BID PRN (Reason: pain) Qty: 10 0RF cyclobenzaprine 10 mg tablet 10 mg PO Q8H Qty: 10 0RF ibuprofen 800 mg tablet 800 mg PO Q8H PRN (Reason: pain) Qty: 14 0RF prednisone 20 mg tablet 40 mg PO DAILY Qty: 10 0RF hydrocodone-acetaminophen 5-325 mg tablet 1 tab PO Q4H PRN (Reason: pain) 3 Days Qty: 5 0RF ondansetron 4 mg tablet,disintegrating 4 mg PO Q8H PRN (Reason: nausea and vomiting) 4 Days Qty: 10 0RF famotidine [Pepcid] 40 mg tablet 40 mg PO BEDTIME 30 Days Qty: 30 3RF bisacodyl [Dulcolax (bisacodyl)] 5 mg tablet,delayed release (DR/EC) 10 mg PO BEDTIME 2 Days Qty: 4 0RF peg 3350-electrolytes [Golytely] 236-22.74-6.74 -5.86 gram recon soln 240 ml PO Q10M 1 Days Qty: 4000 0RF Rx Instructions: until fecal effluent is clear; do not exceed a total volume of 2,000 mL <DONNELL Becerra - Last Filed: 07/04/22 15:24>
[2022-07-04] MEDS: Ketorolac Tromethamine 15 MG/ML VIAL 30 MG IM (16:21)
[2022-07-04] MEDS: predniSONE 20 MG TABLET 60 MG PO (18:30)
== END 2022-07-04 18:34 | disposition home or self-care (01) ==
PROVIDERS: Emergency Provider Emergency Medicine
DX: M54.12 Radiculopathy, cervical region (principal)
CPT/HCPCS: 96372; 99283; 99284; J1885

== ENCOUNTER 2022-08-03 09:25 | Outpatient (REF) | payer OTHER, SELFPAY ==
--- NOTE | ~2022-08-03 | XR_ITS ---
EXAMINATION: XR SHOULDER, LEFT CLINICAL INFORMATION: Chronic pain. COMPARISON: Radiographs dated 11/25/2020. TECHNIQUE: AP external rotation, Grashey, scapular Y, and axillary views of the left shoulder. FINDINGS: Bony alignment and mineralization are normal. The glenohumeral joint is intact. The acromioclavicular and coracoclavicular intervals are normal. No fracture or dislocation is seen. There is a tiny distal acromial undersurface osteophyte. There is mild cortical irregularity of the greater tuberosity of the proximal left humerus. No soft tissue calcification or foreign body is seen. There is no left pneumothorax. XR/XR shoulder LT min 2V IMPRESSION: 1. No fracture or dislocation is seen. 2. Findings suggest possible rotator cuff impingement. There is no lori calcific tendinitis noted.
== END 2022-08-03 09:26 | disposition home or self-care (01) ==
LOC: HO.XRAY 09:25
PROVIDERS: PCP Registered Nurse; Visit Provider Registered Nurse
DX: M25.512 Pain in left shoulder (principal)
CPT/HCPCS: 73030

== ENCOUNTER 2022-11-30 11:30 | Outpatient (REF) | payer OTHER, SELFPAY | END 2022-11-30 11:31 | disposition home or self-care (01) | LOC: HO.HHCLNP 11:30 | PROVIDERS: Visit Provider Registered Nurse | DX: N30.00 Acute cystitis without hematuria (principal) | CPT/HCPCS: 87086 ==

== ENCOUNTER 2022-12-01 11:27 | Outpatient (REF) | payer OTHER, SELFPAY | END 2022-12-01 11:28 | disposition home or self-care (01) | LOC: HO.HHCLNP 11:27 | PROVIDERS: Visit Provider Registered Nurse | DX: Z13.89 Encounter for screening for other disorder (principal) ==

== ENCOUNTER 2022-12-15 17:00 | Outpatient (RCR) | payer OTHER, SELFPAY ==
--- NOTE | 2022-11-02 17:20 | MHC.PT.EP ---
[facility] [place] Office [place] [facility] [place] [facility] [address] [phone] F: [phone] F: [phone] F: [phone] F: [phone] Physical Therapy Plan of Care Date of Evaluation: Date of Surgery: Diagnosis: LEFT shoulder pain (MD Dx) LEFT shoulder adhesive capsulitis, LEFT shoulder subacromial impingement syndrome (PT Dx) Assessment: Patient is a pleasant, [place] speaking, 56 y.o. female with PMHx includes diabetes, who is referred to PT by ANNE MARIE Abernathy, with Dx of LEFT shoulder pain. PT diagnosis is adhesive capsulitis and likely subacromial impingement syndrome. Patient impairments include pain, limited shoulder ROM, weakness, localized shoulder swelling. Patient current functional limitations are lifting, grabbing, difficulty getting dressed, gets help from daughter to cook and clean, washing hair, difficulty reaching behind back. Patient will benefit from skilled PT to address aforementioned impairments and functional limitations to meet established goals. Frequency and Duration: The patient will be seen 2x/week for 6 weeks Short Term Goals: 3 weeks Patient demonstrates consistency and independence with HEP to self manage symptoms. Chart Reader Goals: 6 weeks Patient presents with increased L shoulder AROM 160 degrees to be able to reach to high shelf. Patient presents with increased L shoulder ER AROM 60 degrees to be able to reach behing back for upper body dressing. Treatment Plan: Modalities to reduce pain, spasms and effusion. Manual therapy to restore motion and function. Therapeutic exercise to improve strength and flexibility. Neuromuscular re-education for posture and balance. Therapeutic activities to return to functional activities of daily living. Electronically signed by: Cesar Dumont, PT, DPT Please sign and return to therapist. Thank you for your referral.
--- NOTE | 2023-01-14 10:41 | MHC.PT.DC ---
[facility] [place] Office [place] Office [place] Office [address] Vanessa Johnson [address] [phone] F: [phone] F: [phone] F: [phone] F: [phone] Physical Therapy Discharge Report Diagnosis: LEFT shoulder pain (MD Dx) LEFT shoulder adhesive capsulitis, LEFT shoulder subacromial impingement syndrome (PT Dx) Date of Surgery: Date of Evaluation: 11/02/22 Date of Discharge: 01/14/23 Treatments to Date: 7 Cancellations to Date: 2 No Shows to Date: Discharge Status: Independent with HEP Discharge Summary: Tia was consistent with her PT sessions and showed improvement with PT interventions (modalities, manual therapy and therapeutic exercise/activities). She has printed independent HEP with resistance bands. She ceased attending on her own accord after visit on 12/15/22. She is discharged from PT at this time. Electronically signed by: Cesar Dumont, PT, DPT Please sign and return to therapist. Thank you for your referral.
== END 2023-01-14 10:42 | disposition home or self-care (01) ==
LOC: HO.PT 17:00
PROVIDERS: PCP Registered Nurse; Visit Provider Registered Nurse
DX: M25.512 Pain in left shoulder (principal)
CPT/HCPCS: 97110; 97140; 97161

== ENCOUNTER 2023-02-17 11:33 | Outpatient (REF) | payer OTHER, SELFPAY ==
[2023-02-17 14:22] LABS: Creatinine Urine 151.99 mg/dL; Microalbum/Creatinine Ratio Ur 29.6 ug/mg cr (<30)
== END 2023-02-17 11:34 | disposition home or self-care (01) ==
LOC: HO.HHCL 11:33
PROVIDERS: Visit Provider Registered Nurse
DX: E11.9 Type 2 diabetes mellitus without complications (principal)
CPT/HCPCS: 82043; 82570

== ENCOUNTER 2025-02-23 08:04 | Outpatient (REF) | payer OTHER, SELFPAY ==
--- OUTSIDE RECORDS SUMMARY | 2025-02-23 08:08 | XMS_ITS | Encounter Summary ---
Author Organization [employer] Address [address] [facility] [address] [place] [address] Care Team Providers Care Name Role Phone Shwetha Patterson Primary Care Provider [phone] Reason for Visit * Reason Onset Date Comments Durable Medical Equipment 01/08/2023 Encounter Details Date Type Department Care Team ([facility] st Contact Info) Description 01/08/2023 Telephone [facility] [address] [place] [address] Shwetha Patterson FNP [address] [place] [address] Durable Medical Equipment Social History Tobacco Use Types Packs/Day Years Used Date Smoking Tobacco: Never Smokeless Tobacco: Never Alcohol Use Standard Drinks/Week Comments Never 0 (1 standard drink = 0.6 oz pur e alcohol) Depression Answer Date Recorded Patient Health Questionnaire-9 Score 0 05/04/2022 Housing Stability Answer Date Recorded What is your housing situation today? I have ping jaimes 01/12/[address] you li ve. Do you have problems with any of the following? None of the above 01/12/2023 Food Insecurity Answer Date Recorded Within the past 12 months, y ou worried that your food would run out before you got money to buy more: Never True 01/12/2023 Within the past 12 months,th e food you bought just didn't last and you didn't have enough money to get more: Never True 01/2023 Transportation Answer Date Recorded In the past 12 months, has l ack of transportation kept you from medical appts, meetings, work or from getting things needed for daily living? No 01/12/2023 Utilities Answer Date Recorded In the past 12 months, has t he electric, gas, oil or water company threatened to shut off services in your home? No 01/12/2023 Depression Answer Date Recorded Patient Health Questionnaire-2 Score 0 05/04/2022 Comments Unknown Sex and Gender Information Value Date Recorded Sex Assigned at Female 02/02/2022 10:15 AM EDT Legal Sex Female 10:15 AM EDT Gender Identity Female 02/02/2022 10:15 AM EDT Sexual Orientation Choose not to disclose 2021 10:15 AM EDT documented as of this encounter Miscellaneous Notes * Telephone Encounter - ANNE MARIE Abernathy - 01/08/2023 1:00 PM EDT Logan Bernabe - I do not see on my schedule today for 1pm. Maybe she cancelled? Hubert - can you please call and let her know that insurance is requesting another visit to determine if they can approve the muscle rub? Please schedule her for 15 min visit if she wants to discuss, tele OK. * Telephone Encounter - Florecita Mo LPN - 01/08/2023 10:50 AM EDT Pt has an appt 10.6.23 at 1pm will need to discuss the need for this DME below * Telephone Encounter - Lesli Adams - 01/08/2023 10:28 AM EDT Tc from channing with [facility] requesting DME muscle rub to be faxed to [phone] Any questions, contact channing at [phone] documented in this encounter Plan of Treatment Not on file documented as of this encounter Visit Diagnoses Not on filedocumented in this encounter Additional Health Concerns Assessment Noted Time PHQ-9 Depression Total Score: 0 05/04/19 23 10:19 AM EST documented as of this encounter Care Teams Relationship Specialty Start Date End Date Shwetha Patterson FNP [address] [place] [address] PCP - General Family Medicine 12/03/21 documented as of this encounter
--- OUTSIDE RECORDS SUMMARY | 2025-02-23 08:08 | XMS_ITS | Encounter Summary ---
Author Organization [employer] Address [address] [facility] [address] [place] [address] Care Team Providers Care Applied Psychology Professor Name Role Phone Shwetha Patterson Primary Care Provider Reason for Visit * Reason Onset Date Comments PCP Change 12/22/2022 Encounter Details Date Type Department Care Team ([facility] st Contact Info) Description 12/22/2022 Telephone [facility] [address] [place] [address] Shwetha Patterson FNP [address] [place] [address] PCP Change Social History Tobacco Use Types Packs/Day Years Used Date Smoking Tobacco: Never Smokeless Tobacco: Never Alcohol Use Standard Drinks/Week Comments Never 0 (1 standard drink = 0.6 oz pur e alcohol) Depression Answer Date Recorded Patient Health Questionnaire-9 Score 0 05/04/2022 Depression Answer Date Recorded Patient Health Questionnaire-2 Score 0 05/04/2022 Comments Unknown Sex and Gender Information Value Date Recorded Sex Assigned at Female 02/02/2022 10:15 AM EDT Legal Sex Female 10:15 AM EDT Gender Identity Female 02/02/2022 10:15 AM EDT Sexual Orientation Choose not to disclose 2021 10:15 AM EDT documented as of this encounter Miscellaneous Notes * Telephone Encounter - Fernanda Somers - 12/22/2022 4:03 PM EDT Tc from pt daughter returning call would like to please disregard message , states will stay with PCP. * Telephone Encounter - Tawana Nunez - 12/22/2022 2:01 PM EDT Tc from patients daughter requesting to change PCP, due to location. Patient has no transportation to travel to [facility] and would like a new provider in [facility]. documented in this encounter Plan of Treatment Not on file documented as of this encounter Visit Diagnoses Not on filedocumented in this encounter Additional Health Concerns Assessment Noted Time PHQ-9 Depression Total Score: 0 05/04/19 23 10:19 AM EST documented as of this encounter Care Teams Applied Psychology Professor Relationship Specialty Start Date End Date Shwetha Patterson FNP [address] [place] [address] PCP - General Family Medicine 12/03/21 documented as of this encounter
--- OUTSIDE RECORDS SUMMARY | 2025-02-23 08:08 | XMS_ITS | Clinical Summary ---
Author Organization [employer] Address [address] [place] [address] [address] [place] [address] Care Team Providers Care Fruit Or Nut Farmworker Name Role Phone TilaShwetha bingham ANNE MARIE Primary Care Provider [phone] Allergies No known active allergies Medications Prevalite 4 GM/DOSE powder MIX AND TAKE 4G DIRECTED WITH A MEAL, AVOID OTHER MEDS WITHIN 1HR BEFORE OR 4-6 HOURS AFTER 022 Active famotidine (Pepcid) 40 MG tablet TOME ESTHER TABLETA AL ACOSTARSE 022 Active mirtazapine (Remeron) 30 MG tablet Take 1 tablet by mouth at bed time. Active ondansetron ODT (Zofran-ODT) 4 MG disintegrating tablet TOME 1 TABLETA POR V A ORAL CADA 8 HORAS CUANDO SEA NECESARIO PARA LAS N USEAS Y V MITOS POR 4 D 022 Active cyclobenzaprine (Flexeril) 5 MG tabletIndications :Acute pain of left shoulder Take 1 tablet (5 mg) by mouth if needed in the morning, at noon, and at bedtime for muscle spasms. 30 tablet 023 Active Alcohol Swabs pads Use to clean skin prior to injections 100 each 11 023 Active lactobacillus (Culturelle) capsule TOME ESTHER CAPSULA TODOS LOS ELLIS *NC OTC* 90 capsule 1 023 Active Lancets 28G miscIndications:T ype 2 diabetes mellitus without complication, without long-term current use of insulin (HCC) Use to check BG 3 times per week and when symptomatic 100 each 2 023 Active FREESTYLE LITE test stripIndications: Type 2 diabetes mellitus without complication, without long-term current use of insulin (HCC) CHECK BY FINGERSTICK ROUTE EVERY DAY 100 each 11 023 Active Menthol-Methyl Salicylate (Muscle Rub) 10-15 % creamIndications: Muscle pain Apply by topical route twice daily as needed for left shoulder pain. 85 g 2 023 Active albuterol (2.5 MG/3ML) 0.083% nebulizer solutionIndicatio ns:Moderate persistent asthma without complication INHALE 1 VIAL USING NEBULIZER EVERY 4-6 HOURS IF NEEDED FOR WHEEZING 75 mL 11 024 Active fluticasone furoate (Arnuity Ellipta) 200 MCG/ACT inhalerIndication s:Moderate persistent asthma without complication Inhale 1 puff in the morning. Rinse mouth with water after use to reduce aftertaste and incidence of candidiasis. Do not swallow. 1 each 11 024 Active FLUoxetine (PROzac) 20 MG capsule TOME 1 C PSULA POR V A ORAL TODOS LOS D 024 Active albuterol 108 (90 Base) MCG/ACT inhalerIndication s:Moderate persistent asthma without complication INHALE 2 PUFFS EVERY 6 HOURS IF NEEDED FOR WHEEZING. 18 g 11 025 Active cholecalciferol VITAMIN D (Vitamin D-3) 50 MCG (2000 UT) capsule TOME 1 CAPSULA POR VIA ORAL TODOS LOS ELLIS EN LA MANANA 90 capsule 1 025 Active chlorthalidone (Hygroton) 25 MG tabletIndications :Essential hypertension TAKE 1 TABLET BY MOUTH EVERY DAY 90 tablet 025 Active Trulicity 0.75 MG/0.5ML solution auto-injectorIndi cations:Type 2 diabetes mellitus without complication, without long-term current use of insulin ([facility]) INJECT 0.75 MG UNDER THE SKIN 1 (ONE) TIME PER WEEK. 2 mL 5 025 Active metFORMIN XR (Glucophage-XR) 500 MG 24 hr tabletIndications :Type 2 diabetes mellitus without complication, without long-term current use of insulin (HCC) TAKE 2 TABLETS BY MOUTH TWICE A DAY WITH FOOD 360 tablet 025 Active atorvastatin (Lipitor) 80 MG tabletIndications :Type 2 diabetes mellitus without complication, without long-term current use of insulin (HCC),Mixed hyperlipidemia TAKE 1 TABLET BY MOUTH AT BEDTIME 90 tablet 025 Active amLODIPine-olmesa rtan (Paige) 10-20 MG tabletIndications :Essential hypertension Take 1 tablet by mouth Once per day. 90 tablet 1 025 Active loratadine (Claritin) 10 MG tabletIndications :Seasonal allergies TAKE 1 TABLET BY MOUTH EVERY DAY NEEDED FOR ALLERGIES 90 tablet 3 025 Active loratadine (Claritin) 10 MG tabletIndications :Seasonal allergies TAKE 1 TABLET BY MOUTH EVERY DAY NEEDED FOR ALLERGIES 90 tablet 3 024 2024 Discontinued lisinopril 10 MG tabletIndications :Essential hypertension TAKE 1 TABLET BY MOUTH EVERY DAY 90 tablet 025 2024 Discontinued(T herapy completed) amLODIPine (Norvasc) 10 MG tabletIndications :Essential hypertension TAKE 1 TABLET BY MOUTH EVERY DAY 90 tablet 025 2024 Discontinued(T herapy completed) Active Problems Problem Noted Date Diagnosed Date Healthcare maintenance 02/18/2023 Overview (02/07/2025): Routine Health Maintenance Optometry: CEE 02/2024 [facility] Dental: discuss at f/up BMD: starting at 66 y/o Outstanding IZ: Declines Flu, Zoster, PCV20 Routine Cancer Screening Breast CA: BIRADS 4 in September 2017. Referred for diagnostic mammo 04/07/22. DECLINES FURTHER MAMMO STARTING APR 2022 Cervical CA: 02/20/2020 NIL/-HPV; due 02/2025 Colon CA: iFOBT neg August 2021. Cologuard ordered 02/17/23. DECLINES COLON CA SCREENING OF FEB 2025 Mixed hyperlipidemia 04/07/2022 Assessment & Plan (09/06/2022 7:29 PM EDT): -Lipids: TC 181, LDL 96, HDL 53, TG 231 in August 2022 -Congratulated on significant improvement in readings and to continue with statin and lifestyle interventions Assessment & Plan (08/02/2022 9:58 AM EDT): -Hyperlipidemia and hypertriglyceridemia August 2021 -Repeat fasting lipid panel ordered Assessment & Plan (04/07/2022 10:57 PM EST): -Hyperlipidemia and hypertriglyceridemia August 2021 -Repeat fasting lipid panel ordered Type 2 diabetes mellitus wit hout complication, without long-term current use of insulin 04/07/2022 Assessment & Plan (02/07/2025 4:12 PM EST): Lab Results Component Value Date HGBA1C 6.1 (A) 02/07/2025 -A1c at goal </= 7%, well controlled -Microalbumin: WNL Feb 2023, ordered -Lipids: TC 181, LDL 96, HDL 53, TG 231 in August 2022. ordered -Eye exam: CEE 02/17/24 at [facility] - no diabetic retinopathy -Dental: discuss at follow up -Monofilament: WNL 08/07/21 -ACEi/ARB: yes -Statin prescribed: yes Medications: Cont Trulicity 0.75mg subcutaneous weekly (Will keep metformin on med list per pt request, although she is not actively taking) Assessment & Plan (11/03/2023 3:01 PM EDT): Lab Results Component Value Date HGBA1C 6.1 (A) 11/03/2023 -A1c at goal </= 7%, well controlled -Microalbumin: WNL Feb 2023 -Lipids: TC 181, LDL 96, HDL 53, TG 231 in August 2022. Due. -Eye exam: referral to [facility] July 2023 -Dental: discuss at follow up -Monofilament: WNL 08/07/21 -ACEi/ARB: yes -Statin prescribed: yes Medications: STOP Trulicity 0.75mg subcutaneous weekly START Ozempic 0.25mg subcutaneous weekly. Reviewed med use and safety (Will keep metformin on med list per pt request, although she is not actively taking) Assessment & Plan (07/15/2023 8:28 AM EDT): Lab Results Component Value Date HGBA1C 5.7 07/14/2023 -A1c at goal </= 7%, well controlled -Microalbumin: WNL Feb 2023 -Lipids: TC 181, LDL 96, HDL 53, TG 231 in August 2022 -Eye exam: referral to [facility] July 2023 -Dental: discuss at follow up -Monofilament: WNL 08/07/21 -ACEi/ARB: yes -Statin prescribed: yes Medications: Trulicity 0.75mg subcutaneous weekly (Will keep metformin on med list per pt request, although she is not actively taking) Assessment & Plan (02/18/2023 9:51 AM EST): Lab Results Component Value Date HGBA1C 5.9 02/17/2023 -A1c at goal </= 7%, well controlled -Microalbumin: pending 02/17/23 -Lipids: TC 181, LDL 96, HDL 53, TG 231 in August 2022 -Eye exam:discuss at follow up -Dental: discuss at follow up -Monofilament: WNL 08/07/21 -ACEi/ARB: not currently, pt not interested at this time -Statin: prescribed, although using infrequently Medications: Trulicity 0.75mg subcutaneous weekly (Will keep metformin on med list per pt request, although she is not actively taking) Assessment & Plan (09/06/2022 7:31 PM EDT): Lab Results Component Value Date HGBA1C 6.7 (A) 04/07/2022 -A1c at goal </= 7% -Microalbumin: update -Lipids: TC 181, LDL 96, HDL 53, TG 231 in August 2022 -Eye exam:discuss at follow up -Dental: discuss at follow up -Monofilament: WNL 08/07/21 -ACEi/ARB: not currently, pt not interested at this time -Statin: prescribed, although using infrequently Medications: Continue with metformin 1000mg BID Pt expressed interest in Trulicity, reviewed no contraindications. Start Trulicity 0.75mg subcutaneous weekly. Reviewed med safety and SE. Possibility of decreasing dose of metformin in the future. Encouraged to monitor home blood glucose readings Assessment & Plan (08/02/2022 10:01 AM EDT): Lab Results Component Value Date HGBA1C 6.7 (A) 04/07/2022 -A1c at goal </= 7% -Microalbumin: update -Lipids: TC 322, LDL unable to calc, HDL 44, TG 806 in August 2021 -Eye exam:discuss at follow up -Dental: discuss at follow up -Monofilament: WNL 08/07/21 -ACEi/ARB: not currently, pt not interested in med changes at this time -Statin: atorvastatin 20mg nightly Assessment & Plan (04/07/2022 10:58 PM EST): Lab Results Component Value Date HGBA1C 6.7 (A) 04/07/2022 -A1c improvement, at goal today </= 7% -Microalbumin: update -Lipids: TC 322, LDL unable to calc, HDL 44, TG 806 in August 2021 -Eye exam:discuss at follow up -Dental: discuss at follow up -Monofilament: WNL 08/07/21 -ACEi/ARB: not currently, pt not interested in med changes at this time -Statin: atorvastatin 20mg nightly Moderate persistent asthma without complication 04/07/2022 Assessment & Plan (07/15/2023 8:26 AM EDT): -Start Arnuity Ellipta 200mcg/act, 1 puff in the morning daily -Albuterol PRN -Reviewed rule of 2's for asthma control. Assessment & Plan (02/18/2023 9:50 AM EST): -Continue Flovent 220mcg 2 puffs BID, rinse mouth after each use (to warehouse order picker at [facility]) -Albuterol PRN -Reviewed rule of 2's for asthma control. Assessment & Plan (04/07/2022 10:52 PM EST): -Continue Flovent 220mcg 2 puffs BID, rinse mouth after each use -Albuterol PRN -Reviewed rule of 2's for asthma control. Pt reports feels as though asthma well controlled at this time. Abnormal findings on diagnostic imaging of breas t 08/07/2021 Assessment & Plan (07/15/2023 8:25 AM EDT): -Previous history of BIRADS 4 on 09/14/2017 -Pt had previously declined recommended biopsy for follow up. Says that she did not want to follow up as was asymptomatic. -Mother with history of breast cancer. Discussed risks/benefits of further eval and early tx if any concern for malignancy. Pt continues to decline. Encouraged to follow up or call office if change in mind -July 2023: discussed referral to [facility] at [facility] for consideration of breast MRI, pt declined -Reviewed worrisome sign/symptoms Assessment & Plan (04/07/2022 10:42 PM EST): -Previous history of BIRADS 4 on 09/14/2017 -Pt had previously declined recommended biopsy for follow up. Says that she did not want to follow up as was asymptomatic. -Mother with history of breast cancer. Discussed pros/cons of re-imaging. Pt in agreement to proceed with mammogram. Order placed. Vitamin D deficiency 12/20/2017 Essential hypertension 10/03/2015 Assessment & Plan (02/07/2025 4:12 PM EST): -BP above goal in office as well as variable home readings -Denies any chest pain, SOB, REYES, dizziness, blurry vision Plan: - DISCONTINUE amlodipine 10mg daily - DISCONTINUE lisinopril 10mg daily - CONTINUE chlorthalidone 25mg daily - START amlodipine-olmesartan 10-20mg daily -Low salt diet and daily exercise recommended. -Continue monitoring BP at home, return parameters reviewed -ED precautions reviewed Assessment & Plan (07/15/2023 8:27 AM EDT): -BP above goal in office, although reports well controlled per home readings -Denies any chest pain, SOB, REYES, dizziness, blurry vision -Continue amlodipine 10mg daily -Continue lisinopril 10mg daily -Continue chlorthalidone 25mg daily -Low salt diet and daily exercise recommended. -Continue monitoring BP at home, return parameters reviewed -ED precautions reviewed Assessment & Plan (04/07/2022 10:46 PM EST): -BP elevated in office, although pt reports usually well controlled at home -Denies any chest pain, SOB, REYES, dizziness, blurry vision -Continue amlodipine 10mg daily -Continue chlorthalidone 25mg daily -Low salt diet and daily exercise recommended. -Continue monitoring BP at home, return parameters reviewed -ED precautions reviewed Obesity 08/13/2015 Encounters Date Type Department Care Team Description 02/10/2025 Refill [facility] [address] [place] [address] Shwetha Patterson FNP Seasonal allergies 02/07/2025 10:30 AM EST Office Visit [facility] [address] [place] [address] Shwetha Patterson FNP Type 2 diabetes mellitus without complication, without long-term current use of insulin (HCC) (Primary Dx); Essential hypertension; Healthcare maintenance; Dietary counseling; Exercise counseling 02/07/2025 Travel 01/24/2025 Refill [facility] [address] [place] [address] Bola Lynn MD Type 2 diabetes mellitus without complication, without long-term current use of insulin ([facility]); Mixed hyperlipidemia 01/24/2025 Refill [facility] [address] [place] [address] Shwetha Patterson FNP Essential hypertension; Type 2 diabetes mellitus without complication, without long-term current use of insulin (HCC); Mixed hyperlipidemia 11/26/2024 Refill [facility] [address] [place] [address] Shwetha Patterson FNP Type 2 diabetes mellitus without complication, without long-term current use of insulin ([facility]/HCC) from Last 3 Months Immunizations Immunization Administration Dates Next Due Influenza, IIV3, injectable 02/05/2003 TD (adult), 2 Lf tetanus tox oid, preservative free, adsorbed 02/05/2003 Tdap 09/06/2012 Family History Medical History Relation Name Comments Asthma Father Breast cancer Mother Relation Name Status Comments Father Mother Social History Tobacco Use Types Packs/Day Years Used Date Smoking Tobacco: Never Smokeless Tobacco: Never Tobacco Cessation:Counseling Given: Not Answered Alcohol Use Standard Drinks/Week Comments Never 0 (1 standard drink = 0.6 oz pur e alcohol) Depression Answer Date Recorded Patient Health Questionnaire-9 Score 3 07/14/2023 Patient Health Questionnaire-9 Score 3 07/14/2023 Last PHQ-9: Questionnaire Data Not on file 0 07/14/2023 Housing Stability Answer Date Recorded What is your housing situation today? I have ping jaimes 07/14/[address] you li ve. Do you have problems with any of the following? None of the above 07/14/2023 Food Insecurity Answer Date Recorded Within the past 12 months, y ou worried that your food would run out before you got money to buy more: Never True 07/14/2023 Within the past 12 months,th e food you bought just didn't last and you didn't have enough money to get more: Never True 01/2024 Transportation Answer Date Recorded In the past 12 months, has l ack of transportation kept you from medical appts, meetings, work or from getting things needed for daily living? No 07/14/2023 Utilities Answer Date Recorded In the past 12 months, has t he electric, gas, oil or water company threatened to shut off services in your home? No 07/14/2023 Depression Answer Date Recorded Patient Health Questionnaire-2 Score 1 07/14/2023 Comments Unknown Sex and Gender Information Value Date Recorded Sex Assigned at Female 02/02/2022 10:15 AM EDT Legal Sex Female 10:15 AM EDT Gender Identity Female 02/02/2022 10:15 AM EDT Sexual Orientation Choose not to disclose 2021 10:15 AM EDT Last Filed Vital Signs Vital Sign Reading Time Taken Comments Blood Pressure 142/90 02/07/2025 4:10 PM EST Pulse 84 02/07/2025 10:57 AM EST Temperature 36.2 C (97.2 F) 02/07/2025 10:57 AM EST Respiratory Rate 15 02/07/2025 10:57 AM EST Oxygen Saturation 98% 11/03/2023 12:11 PM EDT Inhaled Oxygen Concentration - - Weight 64.5 kg (142 lb 4 oz) 02/07/2025 10:57 AM EST Height 154.9 cm (5' 1 ) 02/07/2025 10:57 AM EST Body Mass Index 26.88 02/07/2025 10:57 AM EST Plan of Treatment Health Maintenance Due Date Last Done Comments CT Colonography 1966 Colonoscopy 1966 FOBT 1966 HIV Screening 1966 Sigmoidoscopy 1966 Disability Screening 1966 Diabetes: Foot Exam 1976 Alcohol/Substance Use Screening 1978 Hepatitis C Screening 1984 RSV Patients and Patients Aged 60 years or older (1 - Risk 50-74 years 1-dose series) 2016 FIT 08/03/2022 08/03/2021 Lipid Panel 08/04/2023 08/03/2022, 05/0 09/2021, 12/27/2019 Diabetes: Urine Protein Screening 02/18/2024 02/17/2023 Depression Screening 07/13/2024 07/14/2023, 07/14/19 24 SDOH Screening 07/13/2024 07/14/2023 FIT DNA/Cologuard 08/03/2024 08/03/2021 Cervical Cancer Screening 02/19/2025 HPV/Cotest 02/19/2025 02/20/2020, 02/20/2020 Pap Smear 02/19/2025 02/20/2020, 02/20/2020 Diabetes: Hemoglobin A1C 08/07/2025 025, 11/03/2023, 07/14/2023, Additional history exists Influenza Vaccine (#1) 2025 02/05/2003 Postp oned from 12/04/2024 (Patient Refused) Mammogram 02/02/2026 09/03/2017 Postponed from 09/04/2019 (Patient Refused) COVID-19 Vaccine ( season) 2026 07/23/2020, 06/25/2020 Postponed from 12/04/2024 (Patient Refused) Colorectal Cancer Screening 02/07/2026 Postponed from 08/03/2024 (Patient Refused) DTaP/Tdap/Td Vaccines (2 - Td or Tdap) 02/07/2026 09/06/2012, 02/05/2003 Postponed from 09/06/2022 (Patient Refused) Hepatitis B Vaccines (1 of 3 - 19+ 3-dose series) 02/07/2026 Postponed from 1985 (Patient Refused) Pneumococcal Vaccine: 50+ Years (1 of 2 - PCV) 02/07/2026 Postponed from 1985 (Patient Refused) Tobacco Screening 02/07/2026 02/07/2025 Zoster Vaccines (1 of 2) 02/07/2026 Pos tponed from 2016 (Patient Refused) Eye Exam 02/16/2026 02/17/2024, 02/03, 02/17/2024, Additional history exists HIB Vaccines Aged Out No longer eligi ble based on patient's age to complete this topic HPV Vaccines Aged Out No longer eligi ble based on patient's age to complete this topic Hepatitis A Vaccines Aged Out No long er eligible based on patient's age to complete this topic IPV Vaccines Aged Out No longer eligi ble based on patient's age to complete this topic Meningococcal B Vaccine Aged Out No l onger eligible based on patient's age to complete this topic Meningococcal Vaccine Aged Out No dafne mauro eligible based on patient's age to complete this topic RSV under 20 months Aged Out No longe r eligible based on patient's age to complete this topic Rotavirus Vaccines Aged Out No longer eligible based on patient's age to complete this topic Procedures Procedure Name Priority Date/Time Associated Diagnosis Comments POCT GLYCATED HEMOGLOBIN, TOTAL Routine 02/07/2025 11:00 AM EST Type 2 diabetes mellitus without complication, without long-term current use of insulin ([facility]) POCT GLUCOSE Routine 02/07/2025 10:58 AM EST Type 2 diabetes mellitus without complication, without long-term current use of insulin ([facility]) ALBUMIN, RANDOM URINE W/CREATININE Routine 02/17/2023 11:35 AM EST Type 2 diabetes mellitus without complication, without long-term current use of insulin ([facility]/HCC) LIPID PANEL, STANDARD Routine 08/03/2022 9:08 AM EDT FECAL IMMUNOCHEMICAL Routine 08/03/2021 COLOGUARD COLON CANCER SCREENING (EXTERNAL RESULTS ONLY) Routine 08/03/2021 ZZZ HISTORICAL HPV DNA, HIGH RISK, CERVICAL Routine 02/20/2020 12:51 PM EST THINPREP IMAGING SYSTEM PAP Routine 02/20/2020 12:51 PM EST HM MAMMOGRAPHY Routine 09/03/2017 from Last 3 Months or Most Recently Relevant to Health Maintenance Results * (ABNORMAL) POCT Hgb A1c (02/07/2025 11:00 AM EST) Hemoglobin A1C 6.1(A) 4.0 - 5.7 % QC Media Lot # [id number] Lot# Expiration Date ,201 Blood 02/07/2025 11:0 0 AM EST us Shwetha Patterson PLACEMENT ASSISTANT POINT OF CARE TEST ENTER/EDIT ORDERABLES Final Result * POCT Glucose (02/07/2025 10:58 AM EST) Glucose Blood, POC 91 60 - 200 mg/dL QC Media Lot # [id number] Lot# Expiration Date 3,026 Blood Capillary blood specimen / Unknown 02/07/2025 10:58 AM EST us Shwetha Pattesron PLACEMENT ASSISTANT POINT OF CARE TEST ENTER/EDIT ORDERABLES Final Result * (ABNORMAL) Albumin, Random Urine W/Creatinine (02/17/2023 11:35 AM EST) Creatinine, Urine 151.99 mg/dL [facility] Microalbumin Urine 45.0 mg/L H [facility] Microalbum Creatinine Ratio Ur 29.6(H) <30 ug/mg cr [facility] Comment:Albumin/Creatinine R atio Reference Ranges: Normal: < 30 ug/mg creatinine Microalbuminuria: 30 - 300 ug/mg creatinineClinical Albuminuria: > 300 ug/mg creatinine Urine 02/17/2023 11:3 5 AM EST 02/17/2023 1:11 PM EST us Shwetha Patterson PLACEMENT ASSISTANT LAB URINE ORDERABLES Final Res ult [facility] [address] [place] [address] [phone] * (ABNORMAL) Lipid Panel, Standard (08/03/2022 9:08 AM EDT) Cholesterol, Total 181 <200 mg/dL [facility] HDL Cholesterol 53 > OR = 50 mg/dL [facility] Triglycerides 231(H) <150 mg/dL [facility] Comment: If a non-fasting specimen was collected, consider repeat triglyceride testing on a fasting specimen if clinically indicated. Wyatt et al. J. of Clin. Lipidol. 2015;9:129-169. LDL Cholesterol 96 mg/dL (calc) [facility] Comment: Reference range: <100 Desirable range <100 mg/dL for primary prevention; <70 mg/dL for patients with CHD or diabetic patients with > or = 2 CHD risk factors. LDL-C is now calculated using the Zachariah-Jenae calculation, which is a validated novel method providing better accuracy than the Friedewald equation in the estimation of LDL-C. Zachariah SS et al. MATHEUS. 2013;310(19): 2549-3706 (http://education.Tango/faq/WCW558) Chol/HDLC Ratio 3.4 <5.0 (calc) [facility] Non-HDL Cholesterol 128 <130 mg/dL (calc) [facility] Comment: For patients with diabetes plus 1 major ASCVD risk factor, treating to a non-HDL-C goal of <100 mg/dL (LDL-C of <70 mg/dL) is considered a therapeutic option. 08/03/2022 9:08 AM EDT 08/03/2022 9:09 AM EDT Narrative [facility] - 08/03/2022 10:31 PM EDT FASTING:YES FASTING: YES us Shwetha Patterson PLACEMENT ASSISTANT LAB BLOOD ORDERABLES Final Res ult [facility] [address], [place] [address] [facility] [address] [place] [address] * Fecal immunochemical (08/03/2021) Pathologist [facility] Fecal Immunoassay Test (External) IFOBT Neg AUGUST 2021 Stool Rectal contents / Unknown Historical Provider MD LAB BODY FLUIDS AND STOOL S ORDERABLES Final Result * Cologuard Colon Cancer Screening (08/03/2021) Pathologist [facility] Cologuard Cancer Screen Negative Comment:IFOBT Negative August 04 022 Stool 08/03/2021 Historical Provider MD POINT OF CARE TEST ENTER/ EDIT ORDERABLES Final Result * HPV DNA, HIGH RISK, CERVICAL (02/20/2020 12:51 PM EST) [facility] HPV DNA, HIGH RISK, CERVICAL Not Detected NOT DETECTED [facility] Comment: Not Detected High Risk HPV types (16,18,31,33,35,39,45,51,52, 56,58,59,66,68) were not detected. Other HPV types which cause anogenital lesions may be present. The significance of the other types of HPV in malignant processes has not been established. Methodology: Real Time PCR 02/20/2020 12:5 1 PM EST Cheryl Murry NP HISTORICAL/NON ORDERABLE LABS Fi nal Result Performing Organization Address City/State/[facility] Co de Phone Number [facility] [address] * THINPREP TIS PAP (02/20/2020 12:51 PM EST) [facility] Clinical Information: SEE COMMENT [facility] Comment:None given COMMENT SEE COMMENT [facility] Comment: EXPLANATORY NOTE: The Pap is a screening test for cervical cancer. It is not a diagnostic test and is subject to false negative and false positive results. It is most reliable when a satisfactory sample, regularly obtained, is submitted with relevant clinical findings and history, and when the Pap result is evaluated along with historic and current clinical information. COMMENT: SEE COMMENT [facility] LAB SYSTEM Comment: This Pap test has been evaluated with computer assisted technology. Remote Pilot Operator: SEE COMMENT [facility] Comment: SILVER, CT(ASCP) CT screening location: [address] [address] Interpretation/Resu lt: [facility] Comment:Negative for intraep ithelial lesion or malignancy. LMP: [facility] Comment:NONE GIVEN Prev. BX: NONE GIVEN [facility] Prev. PAP: SEE COMMENT [facility] Comment:NONE GIVEN SOURCE: [facility] Comment:None given Statement Of Adequacy: SEE COMMENT [facility] Comment: Satisfactory for evaluation. Endocervical/transformation zone component present. 02/20/2020 12:5 1 PM EST Cheryl Murry NP LAB PATHOLOGY ORDERABLES Final R esult [facility] [address] * Mammography (09/03/2017) Mammogram Bi-rads 4 Comment:Birads 06 September 2017 Anatomical Region Laterality Modality Other 09/03/2017 Historical Provider MD HEALTH MAINTENANCE Final Result from Last 3 Months or Most Recently Relevant to Health Maintenance Insurance [facility] ONE CARE < 65 [place] [id number] Care Teams [employer] Farmworker Relationship Specialty Start Date End Date Shwetha Patterson FNP [address] [place] [address] PCP - General Family Medicine 12/03/21
[2025-02-23 11:36] LABS: MANUAL DIFF FLAG NO
[2025-02-23 11:44] LABS: Hematocrit 44.5 % (37.0-47.0); Hemoglobin 14.7 g/dl (12.0-16.0); Imm Gran Abs Auto 0.04 X10*3/uL (0.00-0.03); Imm Gran Pct Auto 0.5 % (0.0-0.4); Lymphocytes Absolute Auto 2.8 X10*3/uL (1.2-4.9); Mean Corpuscular HGB Conc 33.0 g/dl (31.0-35.0); Mean Corpuscular Hemoglobin 30.6 pg (27.0-33.0); Mean Corpuscular Volume 92.5 fL (80.0-98.0); NRBC Abs Auto 0.000 X10*3/uL (0.0-0.012); NRBC Pct Auto 0.0 /100WBC (0.0-0.2); Platelet Count 201 X10*3/uL (160-400); Red Blood Count 4.81 X10*6/uL (4.20-5.50); White Blood Count 8.3 X10*3/uL (4.8-10.8)
[2025-02-23 12:22] LABS: HIV Num 1 0.05 S/CO (0.00-0.99)
[2025-02-23 12:26] LABS: Alanine Aminotransferase 25 U/L (0-31); Albumin Level 4.5 g/dL (3.5-5.0); Alkaline Phosphatase 66 U/L (39-117); Anion Gap 12 (12-20); Aspartate Amino Transferase 29 U/L (5-31); Blood Urea Nitrogen 14 mg/dL (9-16); Calcium 8.9 mg/dL (8.4-10.2); Carbon Dioxide 26 mmol/L (22-29); Chloride 105 mmol/L (96-108); Cholesterol 215 mg/dL (<200); Estimated Glomerular Filt Rate > 60; HDL Cholesterol 53 mg/dL (>40); Potassium 3.8 mmol/L (3.3-5.1); Sodium 139 mmol/L (135-145); Total Protein 7.8 g/dL (6.5-8.0)
[2025-02-23 12:40] LABS: Triglycerides 184 mg/dL (<150)
[2025-02-23 12:48] LABS: Microalbum/Creatinine Ratio Ur 6.5 ug/mg cr (<30)
[2025-02-23 13:13] LABS: CT PCR Urine NOT DETECTED (Not Detect.); NG PCR Urine NOT DETECTED (Not Detect.)
[2025-02-26 08:13] LABS: HCV Log PCR <1.18 NOT DETECTED Log IU/mL (NOT DETECTED); HepC Viral Load <15 NOT DETECTED IU/mL (NOT DETECTED)
== END 2025-02-23 08:05 | disposition home or self-care (01) ==
LOC: HO.HHCL 08:04
PROVIDERS: PCP Registered Nurse; Visit Provider Registered Nurse
DX: Z00.00 Encounter for general adult medical examination without abnormal findings (principal); Z13.6 Encounter for screening for cardiovascular disorders; Z11.4 Encounter for screening for human immunodeficiency virus [HIV]; Z13.29 Encounter for screening for other suspected endocrine disorder; Z13.0 Encounter for screening for diseases of the blood and blood-forming organs and certain disorders involving the immune mechanism; Z13.21 Encounter for screening for nutritional disorder; Z11.59 Encounter for screening for other viral diseases; Z20.2 Contact with and (suspected) exposure to infections with a predominantly sexual mode of transmission
CPT/HCPCS: 80053; 80061; 82043; 82306; 82570; 84443; 85025; 86592; 87389; 87491; 87522; 87591